=== PATIENT | female | born 1935 | race Caucasian/White ===

== ENCOUNTER → 2019-11-02 | Outpatient (CLI) | payer MEDICARE, OTHER ==
[~2019-11-02] MED LIST: ALBU90OI61; FERREX; METO25ER
== END | disposition home or self-care (01) ==
LOC: LAB SHORT 13:28 → PLD 13:28
DX: L57.0 Actinic keratosis (principal)
CPT/HCPCS: 88305

== ENCOUNTER 2020-04-19 05:32 | Day surgery (SDC) | payer MEDICARE, OTHER ==
[~2020-04-19] VITALS: Ht 170.2 cm; Wt 97.0 kg
[~2020-04-19 05:32] MED LIST changes: +ALBU2.5V5 INH; +ALBU8HFA2 INH; +ALBU90OI INH; +FERROUS SULFAT325 M3 PO; +HYDCHL25 PO; +LISI20 PO; +MYRBETRIQ25 MG PO; +OMEP20ER PO; +VITAMIN E100 UNI1 PO; +XARELTO20 MG PO; +ZINC15 PO
--- NOTE | 2020-04-19 18:39 | NUR ---
SHIFT SUMMARY PT A&Ox4; CALM AND COOPERATIVE WITH CARE. SBA TO BATHROOM. PT REPORTS PAIN TO LEFT SHOULDER; MEDICATED PER EMAR. LEFT CHEST WALL DRESSING C/D/I; SLIGHT BRUISING NOTED ABOVE SITE; TENDER; NO BLEEDING OR HEMATOMA NOTED; NO CREPITUS NOTED. PT DENIES SOB, NASUEA AND DIZZINESS. VSS. NO OTHER ACUTE CHANGES NOTED DURING SHIFT. WILL CONTINUE TO MONITOR UNITL REPORT GIVEN TO ONCOMING RN.
--- NOTE | 2020-04-20 06:43 | NUR ---
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 Patient had difficulty with dry heaves just before bedtime which were resolved with zofran and then headache 5/10 solved with 50mg tramadol. Nausea and headache again this morning also resolved with same. Educated patient about risk of vagaling when she strains on toilet as she came out of the bathroom and explained that she had pushed really hard to have a stool. Last regular BM was 04/18. Telemetry has been Atrial paced in the 60's throughout the shift. Janene is looking forward to going home this morning.
--- NOTE | 2020-04-20 11:06 | NUR ---
DISCHARGE SUMMARY PT A&Ox4; FORGETFUL AT TIMES. PT IND IN ROOM. PT HAD EPISODES OF DRY HEAVING THIS AM; ZOFRAN GIVEN PRIOR TO SHIFT CHANGES; DR NEGRON NOTIFIED; NEW ORDERS ENTERED FOR PHENERGAN; ADMINISTERED WITH POSITIVE RESULTS. PT DENIES PAIN, CHEST PAIN; SOB, AND DIZZINESS. LEFT CHEST WALL TENDER; SLIGHT BRUISING NOTED ABOVE SITE; DR NEGRON AT BEDSDIE TO CHANGES DRESSING. VSS. NO OTHER ACUTE CHANGES NOTED. PT EDUCATED ON DISCHARGE INSTRUCTIONS, FOLLOW UP APPOINTMENT AND MEDICATIONS. NO NEW PRESCRIPTIONS. PT EDUCATED TO STOP XARELTO UNITL RESTARTED BY DR NEGRON. PT EDUCATED ON ACTIVITY RESTRICTIONS. PT LEFT ROOM VIA WHEELCHAIR AT 1102; PT STABLE UPON DISCHARGE.
== END 2020-04-20 11:04 | disposition home or self-care (01) ==
LOC: MHTC 05:32 → PCU 09:52 → ENPENDDIS 04-20 10:09 → MHTC 04-20 11:04
DX: I49.5 Sick sinus syndrome (principal); I48.0 Paroxysmal atrial fibrillation; I11.9 Hypertensive heart disease without heart failure; Z88.2 Allergy status to sulfonamides; Z79.899 Other long term (current) drug therapy; K21.9 Gastro-esophageal reflux disease without esophagitis; Z87.891 Personal history of nicotine dependence; Z79.01 Long term (current) use of anticoagulants; M19.90 Unspecified osteoarthritis, unspecified site; E78.5 Hyperlipidemia, unspecified; Z85.038 Personal history of other malignant neoplasm of large intestine; I08.1 Rheumatic disorders of both mitral and tricuspid valves
CPT/HCPCS: 33208; 71045; 71046; 76937; 99152; 99153; A9270; A9270-GY; C1781; C1785; C1894; C1898; J0690; J1644; J2250; J2405; J2550; J3010; J7030; J7040